=== PATIENT | male | born 1980 | race Caucasian/White ===

== ENCOUNTER 2017-01-14 17:02 | Observation (INO) | payer MEDICARE, MEDICAID ==
[~2017-01-14] VITALS: Ht 188 cm; Wt 92.0 kg
[~2017-01-14 17:02] MED LIST: ARIP10TA11 PO; ASPI-624 PO; DIVA125T2 PO; FAMO10TA77 PO; MOME17SP INH; PROP60CA8 PO; QUET25TA5 PO; RISE5TAB PO; SERT25TA PO
[2017-01-14 19:57] LABS: BLOOD UREA NITROGEN 7 mg/dL (7-18)
[2017-01-14] MEDS ORDERED: POLYETHYLENE GLYCOL 17 GM PACKET PO PRN (20:00)
[2017-01-14] MEDS ORDERED: BISACODYL 10 MG SUPP PR PRN (20:00)
[2017-01-14] MEDS ORDERED: ONDANSETRON ODT 4 MG PO PRN (20:00)
[2017-01-14] MEDS ORDERED: ZIPRASIDONE 20 MG INJ IM ONE ×2 (20:00)
[2017-01-14 20:01] LABS: ASPARTATE AMINO TRANSFERASE 15 U/L (15-37)
[2017-01-14 20:04] LABS: ACETAMINOPHEN < 2 mcg/mL (10-30)
[2017-01-14 20:31] LABS: DAU SCREEN DISCLAIMER
[2017-01-15] MEDS ORDERED: ACETAMINOPHEN 325 MG TABLET ONE ×2 (05:22→22:44)
[2017-01-15] MEDS: ACETAMINOPHEN 325 MG TABLET PO PRN ×2 (05:35→22:51)
[2017-01-15] MEDS: SERTRALINE 50MG TABLET PO SCH (09:05)
[2017-01-15] MEDS: QUETIAPINE 25MG TABLET PO SCH (09:05)
[2017-01-15] MEDS: ARIPIPRAZOLE 10 MG TABLET PO SCH (09:05)
[2017-01-15] MEDS: ASPIRIN 81 MG TABLET EC PO SCH (09:06)
[2017-01-15] MEDS: DIVALPROEX 125 MG TABLET.DR PO SCH (09:06)
[2017-01-15] MEDS: SENNA/DOCUSATE TABLET PO SCH (09:07)
[2017-01-15] MEDS ORDERED: FAMOTIDINE 20 MG TABLET ONE (09:09)
[2017-01-15] MEDS: FAMOTIDINE 20 MG TABLET PO SCH (09:10)
[2017-01-15] MEDS: PROPRANOLOL 60 MG CAP.SA.24H PO SCH (09:18)
[2017-01-15] MEDS ORDERED: LORazepam 1MG TABLET ONE (14:44)
[2017-01-15] MEDS ORDERED: LORazepam 1MG TABLET PO ONE (15:00)
[2017-01-16] MEDS: ACETAMINOPHEN 325 MG TABLET PO PRN (07:45)
[2017-01-16] MEDS ORDERED: ZIPRASIDONE 20 MG INJ IM ONE ×2 (08:51→21:02)
[2017-01-16] MEDS: ZIPRASIDONE 20 MG INJ IM PRN (09:25)
[2017-01-16] MEDS: ASPIRIN 81 MG TABLET EC PO SCH (13:53)
[2017-01-16] MEDS: DIVALPROEX 125 MG TABLET.DR PO SCH (13:53)
[2017-01-16] MEDS: PROPRANOLOL 60 MG CAP.SA.24H PO SCH (13:53)
[2017-01-16] MEDS: ARIPIPRAZOLE 10 MG TABLET PO SCH (13:53)
[2017-01-16] MEDS: SERTRALINE 50MG TABLET PO SCH (13:54)
[2017-01-16] MEDS: FAMOTIDINE 20 MG TABLET PO SCH (13:54)
[2017-01-16] MEDS: SENNA/DOCUSATE TABLET PO SCH (13:54)
[2017-01-16] MEDS: QUETIAPINE 25MG TABLET PO SCH (13:54)
[2017-01-17] MEDS ORDERED: FAMOTIDINE 20 MG TABLET ONE ×2 (13:55→14:28)
[2017-01-17] MEDS: ASPIRIN 81 MG TABLET EC PO SCH (14:32)
[2017-01-17] MEDS: DIVALPROEX 125 MG TABLET.DR PO SCH (14:32)
[2017-01-17] MEDS: FAMOTIDINE 20 MG TABLET PO SCH (14:32)
[2017-01-17] MEDS: ARIPIPRAZOLE 10 MG TABLET PO SCH (14:32)
[2017-01-17] MEDS: SENNA/DOCUSATE TABLET PO SCH (14:32)
[2017-01-17] MEDS: QUETIAPINE 25MG TABLET PO SCH (14:33)
[2017-01-17] MEDS: SERTRALINE 50MG TABLET PO SCH (14:33)
[2017-01-17] MEDS: PROPRANOLOL 60 MG CAP.SA.24H PO SCH (14:34)
[2017-01-17] MEDS ORDERED: ZIPRASIDONE 20 MG INJ IM ONE ×2 (15:22→15:30)
[2017-01-18] MEDS ORDERED: DIPHENHYDRAMINE 25 MG CAPSULE ONE (00:39)
[2017-01-18] MEDS: DIPHENHYDRAMINE 50 MG CAPSULE PO PRN ×2 (00:42→23:44)
[2017-01-18] MEDS ORDERED: ZIPRASIDONE 20 MG INJ IM ONE ×2 (01:59→19:14)
[2017-01-18] MEDS: ZIPRASIDONE 20 MG INJ IM PRN ×2 (02:03→19:23)
[2017-01-18] MEDS ORDERED: FAMOTIDINE 20 MG TABLET ONE (09:11)
[2017-01-18] MEDS: PROPRANOLOL 60 MG CAP.SA.24H PO SCH (09:49)
[2017-01-18] MEDS: ASPIRIN 81 MG TABLET EC PO SCH (09:49)
[2017-01-18] MEDS: QUETIAPINE 25MG TABLET PO SCH (09:50)
[2017-01-18] MEDS: SENNA/DOCUSATE TABLET PO SCH (09:50)
[2017-01-18] MEDS: DIVALPROEX 125 MG TABLET.DR PO SCH (09:50)
[2017-01-18] MEDS: FAMOTIDINE 20 MG TABLET PO SCH (09:50)
[2017-01-18] MEDS: ARIPIPRAZOLE 10 MG TABLET PO SCH (09:50)
[2017-01-18] MEDS: SERTRALINE 50MG TABLET PO SCH (09:50)
[2017-01-18] MEDS ORDERED: DIPHENHYDRAMINE 50 MG CAPSULE ONE (23:43)
[2017-01-19] MEDS ORDERED: ACETAMINOPHEN 325 MG TABLET ONE (08:09)
[2017-01-19] MEDS: ACETAMINOPHEN 325 MG TABLET PO PRN (08:12)
[2017-01-19] MEDS ORDERED: FAMOTIDINE 20 MG TABLET ONE (08:57)
[2017-01-19] MEDS: FAMOTIDINE 20 MG TABLET PO SCH (09:05)
[2017-01-19] MEDS: SERTRALINE 50MG TABLET PO SCH (09:52)
[2017-01-19] MEDS: PROPRANOLOL 60 MG CAP.SA.24H PO SCH (09:52)
[2017-01-19] MEDS: ASPIRIN 81 MG TABLET EC PO SCH (09:52)
[2017-01-19] MEDS: DIVALPROEX 125 MG TABLET.DR PO SCH (09:53)
[2017-01-19] MEDS: SENNA/DOCUSATE TABLET PO SCH (09:53)
[2017-01-19] MEDS: ARIPIPRAZOLE 10 MG TABLET PO SCH (09:53)
[2017-01-19] MEDS: ZIPRASIDONE 20 MG INJ IM PRN (11:03)
[2017-01-19 12:19] VITALS: BP 118/72
[2017-01-19 15:11] LABS: DAU SCREEN DISCLAIMER
== END 2017-01-19 16:25 | disposition home or self-care (01) ==
LOC: ED 19:49 → EDIP 19:58
PROVIDERS: ADMIT Internal Medicine; ATTEND Internal Medicine
DX: R45.851 Suicidal ideations (principal); R45.850 Homicidal ideations; G81.90 Hemiplegia, unspecified affecting unspecified side; F90.9 Attention-deficit hyperactivity disorder, unspecified type; D75.89 Other specified diseases of blood and blood-forming organs; R53.81 Other malaise; Z99.3 Dependence on wheelchair; Z87.820 Personal history of traumatic brain injury; Z98.890 Other specified postprocedural states
CPT/HCPCS: 36415; 80053; 80307; 80329; 82607; 82746; 84443; 85025; 96372; 99285; G0378; J3486; G0480